=== PATIENT | female | born 1995 | race Caucasian/White ===

== ENCOUNTER 2016-07-20 06:22 | Emergency (ER) | payer OTHER ==
[~2016-07-20] VITALS: Ht 167.6 cm; Wt 65.3 kg
[2016-07-20] MEDS ORDERED: BC PATCH TOP (06:40)
[2016-07-20] MEDS ORDERED: NYQUIL PO (06:40)
[2016-07-20] MEDS ORDERED: DEXAMETHASONE PF 10 MG/ML (DECADRON) VIAL IM STA (06:42)
[2016-07-20] MEDS ORDERED: IBUPROFEN TABLET 200 MG TAB PO STA (06:42)
--- NOTE | 2016-07-20 06:49 | ED EENT ---
History of Present Illness General Chief Complaint: Ear Problems Stated Complaint: LEFT EAR PAIN Nursing Triage Note: L EAR PAIN STARTED LAST PM. WAS SEEN AT [facility] YESTERDAY Source: patient Exam Limitations: no limitations History of Present Illness Time seen by provider: 06:33 Initial Comments Here with report of left ear pain that started this morning. She has had upper respiratory symptoms for the last week and a half. She was seen at [facility] yesterday and started on cough medicine. She is not currently on antibiotics. Complains of sore throat, runny nose, left ear pain, cough and overall not feeling well. She did take Sudafed this morning and that has not helped ear pain. Timing/Duration: last week Severity: moderate Location: ear (L) Prearrival Treatment: over the counter meds Associated Symptoms: cough, No fever, nasal congestion/drainage, sore throat Allergies and Home Medications Allergies Coded Allergies: No Known Drug Allergies (Unverified , 07/20/16) Home Medications [Bc Patch] , Unknown Dose TOP, (Reported) [Nyquil] , Unknown Dose PO HS, (Reported) Review of Systems Constitutional: see HPI, No chills, No fever Eyes: See HPI Ears: Pain, Denies Bloody Discharge Nose: no symptoms reported Mouth: no symptoms reported Throat: see HPI, pain, denies neck stiffness Respiratory: no symptoms reported, No cough, No short of breath Cardiovascular: no symptoms reported Gastrointestinal: No nausea, No vomiting : No Neurological: No Symptoms Reported Past Vaxxhqw-Rejvjj-Rjxvpb Hx Patient Social History Alcohol Use: Denies Use Recreational Drug Use: No Smoking Status: Never a Smoker Recent Foreign Travel: No Contact w/Someone Who Travel: No Recent Infectious Disease Expo: No Recent Hopitalizations: No Ebola Symptoms: Denies Symptoms Listed Immunizations Up To Date PED Vaccines UTD: Yes Seasonal Allergies Seasonal Allergies: No Surgeries HX Surgeries: Yes Surgeries: Ear Surgery Respiratory Hx Respiratory Disorders: No Cardiovascular Hx Cardiac Disorders: No Neurological Hx Neurological Disorders: No HEENT HX ENT Disorders: Yes HEENT Disorders: Chronic Ear Infection Reviewed Nursing Assessment Reviewed/Agree w Nursing PMH: Yes Physical Exam Vital Signs Vital Sign - Last 12Hours 07/20/16 06:35 Temp 98.0 Pulse 87 Resp 16 B/P (MAP) 114/68 General Appearance: WD/WN, no apparent distress Eyes: bilateral eye EOMI, bilateral eye PERRL, bilateral eye normal inspection Ears: right ear TM normal, left ear TM bulging, left ear TM red, bilateral ear auricle normal, bilateral ear canal normal, bilateral ear other Mouth/Throat: pharynx swelling, No voice changes Neck: full range of motion, supple Cardiovascular: regular rate, rhythm, no murmur Respiratory: lungs clear, normal breath sounds Neurologic/Psychiatric: alert, oriented x 3 Skin: normal color, warm/dry Progress/Results/Core Measures Results/Orders Vital Signs/I&O Vital Sign - Last 12Hours 07/20/16 06:35 Temp 98.0 Pulse 87 Resp 16 B/P (MAP) 114/68 Progress Note : Progress Note Seen and evaluated. Ibuprofen 600 mg by mouth. Decadron 10 mg IM. Discharged home with return precautions. Patient verbalize understanding instructions and agreement with plan. Departure Impression Impression: Primary Impression: Upper respiratory infection Qualified Codes: J06.9 - Acute upper respiratory infection, unspecified Additional Impression: Otalgia of left ear Disposition: HOME, SELF-CARE Condition: Stable Departure-Patient Inst. Decision time for Depature: 06:52 Referrals: [facility] (PCP/Family) Primary Care Physician Patient Instructions: Bacterial Upper Respiratory Infection, Adult (DC), Ear Infections (Otitis Media) (DC) Add. Discharge Instructions: All discharge instructions reviewed with patient and/or family. Voiced understanding. You may take ibuprofen 600 mg every 8 hours as needed for pain. You may take Tylenol 1000 mg every 8 hours as needed for pain if you're other cough medicine as not have Tylenol (acetaminophen) in it . Drink plenty of fluids. Return for worse pain, fever, vomiting, weakness, breathing problems or other concerns as needed. Scripts Azithromycin (Azithromycin) 250 Mg Tablet 250 MG PO UD, #6 TAB TAKE 2 TABLETS ON DAY ONE THEN TAKE 1 TABLET DAILY FOR FOUR MORE DAYS Prov: ROHAN SHINE MD 07/20/16 ROHAN SHINE MD Jul 20, 2016 06:49
[2016-07-20] MEDS ORDERED: AZIT250T5 PO (06:55)
== END 2016-07-20 06:58 | disposition home or self-care (01) ==
LOC: ER 06:27
DX: J06.9 Acute upper respiratory infection, unspecified (principal); H92.02 Otalgia, left ear
CPT/HCPCS: 96372; 99282

== ENCOUNTER 2016-10-04 05:53 | Emergency (ER) | payer OTHER ==
[~2016-10-04] VITALS: Ht 167.6 cm; Wt 63.5 kg
[~2016-10-04 05:53] MED LIST: AZIT250T5 PO; BC PATCH TOP; NYQUIL PO
--- NOTE | 2016-10-04 07:39 | ED General ---
General Chief Complaint: Oral/Throat Problems Stated Complaint: SINUS DRAINAGE,POSS SINUS INFECTION,VOMITING,THROA Nursing Triage Note: Patient advises that she began experiencing sinus drainage and difficulty swallowing on or Monday. She has tried over the counter sinex but states that it has not improved. Source of Information: Patient Exam Limitations: No Limitations History of Present Illness Time Seen by Provider: 06:53 Initial Comments This 20-year-old young lady presents to the emergency room with complaints of pharyngitis for the past 5 days. Pain was intense enough that she was having difficulty sleeping last night. She also has had bilateral ear discomfort. She took some tzdz-cra-pozvpws sinus medication which was not particularly helpful. Yesterday she experienced nausea and vomiting. She is mildly nauseated today. Her LMP was 2 weeks ago and she denies . Allergies and Home Medications Allergies Coded Allergies: No Known Drug Allergies (Unverified , 07/20/16) Home Medications Amoxicillin 500 Mg Capsule, 1,000 MG PO BID, #40 Prescribed by: PARISH BRIGGS on 10/04/16 0742 Azithromycin 250 Mg Tablet, 250 MG PO UD, #6 TAKE 2 TABLETS ON DAY ONE THEN TAKE 1 TABLET DAILY FOR FOUR MORE DAYS Prescribed by: ROHAN SHINE on 07/20/16 0655 Ondansetron 4 Mg Tab.rapdis, 4 MG SL Q4H, #10 Prescribed by: PARISH BRIGGS on 10/04/16 0742 [Bc Patch] , Unknown Dose TOP, (Reported) [Nyquil] , Unknown Dose PO HS, (Reported) Constitutional: no symptoms reported EENTM: see HPI Respiratory: no symptoms reported Cardiovascular: no symptoms reported Gastrointestinal: see HPI Genitourinary: no symptoms reported : No LMP: Sep 23, 2016 Musculoskeletal: no symptoms reported Skin: no symptoms reported Psychiatric/Neurological: No Symptoms Reported Hematologic/Lymphatic: No Symptoms Reported Past Afcbean-Cqgwdc-Xcqsjs Hx Patient Social History Alcohol Use: Denies Use Recreational Drug Use: No Smoking Status: Never a Smoker Recent Foreign Travel: No Contact w/Someone Who Travel: No Recent Infectious Disease Expo: No Recent Hopitalizations: No Immunizations Up To Date PED Vaccines UTD: Yes Seasonal Allergies Seasonal Allergies: No Surgeries HX Surgeries: Yes Surgeries: Ear Surgery (tubes and perforation repair) Respiratory Hx Respiratory Disorders: No Cardiovascular Hx Cardiac Disorders: No Neurological Hx Neurological Disorders: No Reproductive System : No Genitourinary Hx Genitourinary Disorders: No Gastrointestinal Hx Gastrointestinal Disorders: No Musculoskeletal Hx Musculoskeletal Disorders: No Endocrine Hx Endocrine Disorders: No HEENT HX ENT Disorders: Yes HEENT Disorders: Chronic Ear Infection Cancer Hx Cancer: No Psychosocial Hx Psychiatric Problems: No Integumentary HX Skin/Integumentary Disorder: No Physical Exam Vital Signs Vital Sign - Last 12Hours 10/04/16 06:32 Temp 98.3 Pulse 76 Resp 16 B/P (MAP) 118/75 Pulse Ox 98 O2 Delivery Room Air Capillary Refill : General Appearance: No Apparent Distress, WD/WN HEENT: PERRL/EOMI, Normal ENT Inspection, Other (middle ear exam obscured by TM scarring bilaterally. No erythema of the TMs. Pharynx and soft palate inflamed and erythematous) Neck: Normal Inspection, Supple, No Lymphadenopathy (L), No Lymphadenopathy (R) , Tender Lateral Respiratory: Lungs Clear, Normal Breath Sounds, No Accessory Muscle Use, No Respiratory Distress Cardiovascular: Regular Rate, Rhythm, No Edema, No Murmur Gastrointestinal: No Organomegaly, Non Tender, Soft Extremity: Normal Inspection Neurologic/Psychiatric: Alert, Oriented x3, No Motor/Sensory Deficits, Normal Mood/Affect, machine tool designer II-XII Norm as Tested Skin: Normal Color, Warm/Dry Progress/Results/Core Measures Results/Orders Lab Results Laboratory Tests Test 10/04/16 06:59 Range/Units Group A Streptococcus Screen NEGATIVE NEGATIVE My Orders Orders - PARISH CHURCH MD Rapid Strep A Screen (10/04/16 07:01) Amoxicillin Capsule (Polymox Capsule) (10/04/16 07:45) Medications Given in ED Current Medications Medications Dose Ordered Sig/Magnus Route Start Time Stop Time Status Last Admin Dose Admin Amoxicillin 1,000 mg ONCE ONCE PO 10/04/16 07:45 10/04/16 07:46 DC 10/04/16 07:48 1,000 MG Vital Signs/I&O Vital Sign - Last 12Hours 10/04/16 10/04/16 10/04/16 06:32 06:32 07:49 Temp 98.3 98.3 98.3 Pulse 76 85 76 Resp 16 16 16 B/P (MAP) 118/75 118/75 Pulse Ox 98 98 O2 Delivery Room Air Room Air Room Air Progress Note : Progress Note Rapid strep was negative but patient will be treated based on symptoms and exam. First dose of amoxicillin was given in the ER. Departure Impression Impression: Primary Impression: Pharyngitis Qualified Codes: J02.9 - Acute pharyngitis, unspecified Additional Impression: Nausea and vomiting Qualified Codes: R11.2 - Nausea with vomiting, unspecified Disposition: 01 HOME, SELF-CARE Condition: Stable Departure-Patient Inst. Decision time for Depature: 07:00 Referrals: [facility] (PCP/Family) Primary Care Physician Patient Instructions: Sore Throat in Adults Add. Discharge Instructions: Complete your antibiotics as prescribed. Biodiesel Engine Specialist dispose of toothbrushes and any other oral instruments about [facility] through your antibiotic therapy. If antibiotics do not resolve your symptoms, consider testing tested for mono. Return to care if symptoms worsen. You may take ibuprofen up to 600 mg every 6 hours as needed for pain or fever. You may additionally take Tylenol ( acetaminophen) up to 1000 mg every 6 hours. Use Zofran (ondansetron) as necessary for nausea or vomiting. All discharge instructions reviewed with patient and/or family. Voiced understanding. Scripts Ondansetron (Ondansetron Odt) 4 Mg Tab.rapdis 4 MG SL Q4H, #10 TAB Prov: PARISH CHURCH MD 10/04/16 Amoxicillin (Amoxicillin) 500 Mg Capsule 1000 MG PO BID, #40 CAP Prov: PARISH CHURCH MD 10/04/16 Work/School Note: Work Release Form Date Seen in the Emergency Department: Oct 04, 2016 Return to Work: Oct 05, 2016 Restrictions: No Restrictions PARISH CHURCH MD Oct 04, 2016 07:39
[2016-10-04] MEDS ORDERED: ONDA4TAB11 SL (07:42)
[2016-10-04] MEDS ORDERED: AMOX500C2 PO (07:42)
[2016-10-04] MEDS ORDERED: AMOXICILLIN 500 MG (POLYMOX) CAP PO ONE (07:45)
== END 2016-10-04 07:50 | disposition home or self-care (01) ==
LOC: EDUNIT# 05:53 → ER 05:57
DX: J02.9 Acute pharyngitis, unspecified (principal); R11.2 Nausea with vomiting, unspecified
CPT/HCPCS: 87430; 99283

== ENCOUNTER 2017-08-21 20:00 | Emergency (ER) | payer OTHER ==
[~2017-08-21] VITALS: Ht 167.6 cm; Wt 65.8 kg
[~2017-08-21 20:00] MED LIST changes: +AMOX500C2 PO; +AZIT250T12 PO; -AZIT250T5 PO; +ONDA4TAB11 SL
--- NOTE | 2017-08-21 20:56 | ED EENT ---
History of Present Illness General Chief Complaint: Ear Problems Stated Complaint: EAR PAIN Nursing Triage Note: bilateral ear pain Source: patient, other (significant other) Exam Limitations: no limitations History of Present Illness Date Seen by Provider: August 21, 2017 Time Seen by Provider: 20:54 Timing/Duration: gradual, other (5 day onset) Location: ear (R), ear (L) Allergies and Home Medications Allergies Coded Allergies: No Known Drug Allergies (Unverified , 07/20/16) Home Medications Amoxicillin 500 Mg Capsule, 1,000 MG PO BID Prescribed by: PARISH BRIGGS on 10/04/16 07 Cefdinir 300 Mg Capsule, 300 MG PO BID Prescribed by: CORDELIA RICHMOND on 08/21/172057 Prednisone 20 Mg Tab, 40 MG PO DAILY Prescribed by: CORDELIA RICHMOND on 08/21/172057 Patient Home Medication List Home Medication List Reviewed: Yes Past Tqekkgo-Ivbcon-Rnjahc Hx Patient Social History Alcohol Use: Denies Use Recreational Drug Use: No Smoking Status: Never a Smoker 2nd Hand Smoke Exposure: No Recent Foreign Travel: No Contact w/Someone Who Travel: No Recent Infectious Disease Expo: No Recent Hopitalizations: No Immunizations Up To Date Tetanus Booster (TDap): Less than 5yrs PED Vaccines UTD: Yes Seasonal Allergies Seasonal Allergies: No Past Medical History Surgeries: Yes (bmt) Ear Surgery Respiratory: No Cardiac: No Neurological: No : No Genitourinary: No Gastrointestinal: No Musculoskeletal: No Endocrine: No HEENT: Yes Chronic Ear Infection Loss of Vision: Denies Hearing Impairment: Denies Cancer: No Psychosocial: No Integumentary: No Blood Disorders: No Adverse Reaction/Blood Tranf: No Physical Exam Vital Signs Progress/Results/Core Measures Results/Orders Vital Signs/I&O Blood Pressure Mean: 84 Departure Impression Primary Impression: Upper respiratory infection Disposition: 01 HOME, SELF-CARE Condition: Improved Departure-Patient Inst. Decision time for Depature: 20:55 Referrals: [facility] (PCP/Family) Primary Care Physician Patient Instructions: Bacterial Upper Respiratory Infection, Adult (DC) Add. Discharge Instructions: All discharge instructions reviewed with patient and/or family. Voiced understanding. Medications as instructed. Afrin nasal spray [id number]-ivp-[id number] and saline nasal spray [id number]-[id number] as directed for nasal congestion. Tylenol extra strength sysn-lvb-soczdli as directed for pain or fever. Ibuprofen 800 mg by mouth every 8 hours as needed for pain or fever. Follow-up with your primary care provider of choice or [facility] for recheck if no improvement in symptoms. Return to the emergency department for worsened symptoms or any other concerns. Scripts Prednisone (Prednisone) 20 Mg Tab 40 MG PO DAILY, #10 TAB 0 Refills Prov: CORDELIA RICHMOND 08/21/17 Cefdinir (Cefdinir) 300 Mg Capsule 300 MG PO BID, #14 CAP 0 Refills Prov: CORDELIA RICHMOND 08/21/17 CORDELIA RICHMOND August 21, 2017 20:56
[2017-08-21] MEDS ORDERED: PRD20T PO (20:58)
[2017-08-21] MEDS ORDERED: CEFD300C3 PO (20:58)
[2017-08-21 21:05] VITALS: BP 112/70
== END 2017-08-21 21:02 | disposition home or self-care (01) ==
LOC: EDUNIT# 20:00 → ER 20:01
DX: J06.9 Acute upper respiratory infection, unspecified (principal); Z98.890 Other specified postprocedural states
CPT/HCPCS: 99282